=== PATIENT | male | born 1970 | race American Indian/Alaskan Native ===

== ENCOUNTER 2016-09-30 13:37 | Inpatient (IN) | payer MEDICAID ==
--- NOTE | 2016-09-30 14:48 | CT ---
PROCEDURE: CT HEAD WITHOUT CONTRAST. HISTORY: Syncope COMPARISON: None available. TECHNIQUE: Axial computed tomography images were obtained through the head/brain without intravenous contrast. Radiation dose: Total exam DLP = 711.77 MGy-cm. This CT exam was performed using one or more of the following dose reduction techniques: Automated exposure control, adjustment of the mA and/or kV according to patient size, and/or use of iterative reconstruction technique. FINDINGS: HEMORRHAGE: No intracranial hemorrhage. BRAIN: Block-white matter differentiation is preserved. There is no mass, mass effect or abnormal extra-axial fluid collection. There is no territorial infarction. VENTRICLES: The ventricles are normal in size, shape and configuration. CALVARIUM: There is no calvarial fracture or extracranial soft tissue swelling. PARANASAL SINUSES: Predominantly clear. MASTOID AIR CELLS: Predominantly clear. OTHER FINDINGS: None. IMPRESSION: No acute intracranial abnormality.
--- NOTE | 2016-09-30 14:56 | ED PDOC ---
Arrival/HPI - General Chief Complaint: Syncope Time Seen by Provider: 09/30/16 14:05 Historian: Patient - History of Present Illness Narrative History of Present Illness (Text): 09/30/16 14:55 46 year old male sent by PMD for evaluation of multiple syncopal episodes. Patient states he has "blacked out" multiple times. He also reports shortness of breath for the past month. Denies any other complaints at this time. pt saw dr danielson today, sent to er for admission for syncope PMD: Dr. Danielson 09/30/16 16:13 Time/Duration: < month Symptom Onset: Gradual Symptom Course: Intermittent Modifying Factors (Text): None Past Medical History - Provider Review Nursing Documentation Reviewed: Yes - Infectious Disease Hx of Infectious Diseases: None - Tetanus Immunization Tetanus Immunization: Unknown - Cardiac Hx Cardiac Disorders: No - Pulmonary Hx Respiratory Disorders: Yes Hx Asthma: Yes - Neurological Hx Neurological Disorder: Yes HX Cerebrovascular Accident: Yes - HEENT Hx HEENT Disorder: No - Renal Hx Renal Disorder: No - Endocrine/Metabolic Hx Endocrine Disorders: No - Hematological/Oncological Hx Blood Disorders: No - Integumentary Hx Dermatological Disorder: No - Musculoskeletal/Rheumatological Hx Musculoskeletal Disorders: No - Gastrointestinal Hx Gastrointestinal Disorders: No - Genitourinary/Gynecological Hx Genitourinary Disorders: No - Psychiatric Hx Psychophysiologic Disorder: No Hx Depression: No Hx Emotional Abuse: No Hx Physical Abuse: No Hx Substance Use: No (as per patient, he stopped years ago) - Anesthesia Hx Anesthesia: No - Suicidal Assessment Feels Threatened In Home Enviroment: No Family/Social History - Physician Review Nursing Documentation Reviewed: Yes Family/Social History: Unknown Family HX Smoking Status: Former Smoker Hx Alcohol Use: No Hx Substance Use: No (as per patient, he stopped years ago) Substance used: marijuana, cocaine, heroine Hx Substance Use Treatment: No Allergies/Home Meds Allergies/Adverse Reactions: Allergies No Known Allergies Allergy (Verified 09/30/16 14:02) Review of Systems - Physician Review All systems were reviewed & negative as marked: Yes - Review of Systems Respiratory: SOB. absent: Cough Cardiovascular: Syncope. absent: Chest Pain Gastrointestinal: absent: Abdominal Pain Physical Exam Vital Signs Reviewed: Yes Vital Signs Temp Pulse Resp BP Pulse Ox 09/30/16 19:38 57 L 14 121/72 100 09/30/16 17:46 68 18 125/71 98 09/30/16 15:27 65 18 127/79 98 09/30/16 14:03 98.2 F 62 16 129/86 98 Temperature: Afebrile Blood Pressure: Normal Pulse: Regular Respiratory Rate: Normal Appearance: Positive for: Well-Appearing, Non-Toxic, Comfortable Pain Distress: None Mental Status: Positive for: Alert and Oriented X 3 - Systems Exam Head: Present: Atraumatic, Normocephalic Pupils: Present: PERRL Extroacular Muscles: Present: EOMI Conjunctiva: Present: Normal Mouth: Present: Moist Mucous Membranes Neck: Present: Normal Range of Motion Respiratory/Chest: Present: Clear to Auscultation, Good Air Exchange. No: Respiratory Distress, Accessory Muscle Use Cardiovascular: Present: Regular Rate and Rhythm, Normal S1, S2. No: Murmurs Abdomen: Present: Normal Bowel Sounds. No: Tenderness, Distention, Peritoneal Signs Back: Present: Normal Inspection Upper Extremity: Present: Normal Inspection. No: Cyanosis, Edema Lower Extremity: Present: Normal Inspection. No: Edema, Tenderness, Swelling Neurological: Present: GCS=15, CN II-XII Intact, Speech Normal Skin: Present: Warm, Dry, Normal Color. No: Rashes Psychiatric: Present: Alert, Oriented x 3, Normal Insight, Normal Concentration Medical Decision Making ED Course and Treatment: Impression: 46 year old male sent by PMD for evaluation of multiple syncopal episodes Differential Diagnosis include but are not limited to: sycnope, r/o cardiac, metaboic, intracranial pathology Plan: -- CT Head, EKG, Chest X-ray -- Labs -- Reassess and disposition Progress Notes: 09/30/16 14:55 Patient is PERC negative PROCEDURE: CT HEAD WITHOUT CONTRAST. Peer Support Specialist : Marysol Quezada MD Report Date : 09/30/2016 14:46:49 IMPRESSION: No acute intracranial abnormality. 09/30/16 16:14 pt reassesed. aleksandra. discussed with dr salinas, accepts for admission - Lab Interpretations Lab Results: 09/30/16 15:10 09/30/16 15:10 Lab Results 09/30/16 15:40: Urine Color Yellow, Urine Appearance Clear, Urine pH 6.0, Ur Specific Glennie 1.025, Urine Protein Trace H, Urine Glucose (UA) Negative, Urine Ketones Negative, Urine Blood Negative, Urine Nitrate Negative, Urine Bilirubin Negative, Urine Urobilinogen 0.2, Ur Leukocyte Esterase Negative, Urine RBC 0 - 2, Urine WBC 0 - 2, Ur Epithelial Cells 0 - 2, Urine Bacteria Trace 09/30/16 15:10: Hemoglobin A1c 5.5 09/30/16 15:10: TSH 3rd Generation 1.51, Alcohol, Quantitative < 10 09/30/16 15:10: Sodium 137, Potassium 4.8, Chloride 99, Carbon Dioxide 32, Anion Gap 11, BUN 19, Creatinine 1.3, Est GFR ( Amer) > 60, Est GFR (Non- Af Amer) 60, Random Glucose 98, Calcium 9.6, Magnesium 2.1, Total Bilirubin 0.6 , AST 39, ALT 41, Alkaline Phosphatase 44, Lactate Dehydrogenase 475, Total Creatine Kinase 293 H, CK-MB (CK-2) 4.2 H, CK-MB (CK-2) % Cancelled, Troponin I < 0.01, NT-Pro-B Natriuret Pep 15.3, Total Protein 8.0, Albumin 4.7, Globulin 3.4, Albumin/Globulin Ratio 1.4 09/30/16 15:10: PT 12.1 H, INR 1.12 H, APTT 29.6 09/30/16 15:10: WBC 4.1 L, RBC 4.61, Hgb 13.6 L, Hct 39.9 L, MCV 86.6, MCH 29.5 , MCHC 34.1, RDW 13.4, Plt Count 89 L, MPV 11.6 H, Gran % 51.6, Lymph % (Auto) 36.8 H, [place] % (Auto) 8.4 H, Eos % (Auto) 2.5, Baso % (Auto) 0.7, Gran # 2.09, Lymph # 1.5, [place] # 0.3, Eos # 0.1, Baso # 0.03 - RAD Interpretation Radiology Orders: 09/30/16 14:15 HEAD W/O CONTRAST [CT] Stat CHEST PORTABLE [RAD] Stat - Medication Orders Current Medication Orders: Discontinued Medications Al Hydrox/Mg Hydrox/Simethicone (Maalox Plus 30 Ml) 30 ml PO STAT STA Stop: 10/02/16 12:51 Last Admin: 10/02/16 13:11 Dose: 30 ml Aspirin (Aspirin Chewable) 81 mg PO DAILY [facility] Last Admin: 10/02/16 10:58 Dose: 81 mg Aspirin (Ecotrin) Confirm Administered Dose 81 mg PO .STK-MED ONE Stop: 10/02/16 10:58 Last Admin: 10/02/16 11:00 Dose: 81 mg Atorvastatin Calcium (Lipitor) 10 mg PO DIN [facility] Last Admin: 10/01/16 18:00 Dose: 10 mg Ibuprofen (Motrin Tab) 400 mg PO Q6H PRN PRN Reason: Pain, severe (8-10) Last Admin: 10/02/16 12:02 Dose: 400 mg Ibuprofen (Motrin Tab) Confirm Administered Dose 400 mg PO .STK-MED ONE Stop: 10/02/16 11:57 Last Admin: 10/02/16 12:04 Dose: Multivitamins (Thera Tab) 1 tab PO STAT STA Stop: 09/30/16 17:46 Last Admin: 09/30/16 20:16 Dose: Not Given Non-Admin Reason: Patient Refused Multivitamins/Minerals (Therapeutic-M Tab) 1 tab PO 0800 [facility] Last Admin: 10/02/16 10:58 Dose: 1 tab Multivitamins/Minerals (Therapeutic-M Tab) Confirm Administered Dose 1 tab PO .STK-MED ONE Stop: 10/02/16 10:58 Last Admin: 10/02/16 11:00 Dose: 1 tab Pantoprazole Sodium (Protonix Ec Tab) 40 mg PO 0600 [facility] Last Admin: 10/02/16 05:44 Dose: 40 mg Pneumococcal Polyvalent Vaccine (Pneumovax 23 Vaccine) 0.5 ml IM .ONCE ONE Stop: 09/30/16 21:38 Prednisone (Prednisone Tab) 40 mg PO STAT STA Stop: 10/01/16 10:10 Last Admin: 10/01/16 10:29 Dose: 40 mg Prednisone (Prednisone Tab) 30 mg PO STAT STA Stop: 10/02/16 13:30 Last Admin: 10/02/16 13:38 Dose: 30 mg Thiamine HCl (Vitamin B1 Tab) 100 mg PO DAILY [facility] Last Admin: 10/02/16 10:58 Dose: Thiamine HCl (Vitamin B1 Tab) 100 mg PO DAILY [facility] Last Admin: 10/02/16 10:58 Dose: 100 mg Thiamine HCl (Vitamin B1 Tab) Confirm Administered Dose 100 mg .ROUTE .STK-MED ONE Stop: 10/02/16 10:59 Last Admin: 10/02/16 11:00 Dose: 100 mg - Scribe Statement The provider has reviewed the documentation as recorded by the Orin Limon Provider Scribe Attestation: All medical record entries made by the Orin were at my direction and personally dictated by me. I have reviewed the chart and agree that the record accurately reflects my personal performance of the history, physical exam, medical decision making, and the department course for this patient. I have also personally directed, reviewed, and agree with the discharge instructions and disposition. Disposition/Present on Arrival - Present on Arrival Any Indicators Present on Arrival: No History of DVT/PE: No History of Uncontrolled Diabetes: No Urinary Catheter: No History of Decub. Ulcer: No History Surgical Site Infection Following: None - Disposition Have Diagnosis and Disposition been Completed?: Yes Diagnosis: Syncope Disposition: HOSPITALIZED Disposition Time: 04:00 Condition: FAIR
--- NOTE | 2016-09-30 15:18 | RAD ---
HISTORY: Syncope COMPARISON: No prior. FINDINGS: LUNGS: The lungs are well inflated and clear. PLEURA: No significant pleural effusion identified, no pneumothorax apparent. CARDIOVASCULAR: Normal. OSSEOUS STRUCTURES: No significant abnormalities. VISUALIZED UPPER ABDOMEN: Normal. OTHER FINDINGS: None. IMPRESSION: No active pulmonary disease.
[2016-09-30 15:22] LABS: ADD MANUAL DIFF? NO
[2016-09-30 15:36] LABS: INR 1.12 (0.93-1.08); PARTIAL THROMBOPLASTIN TIME 29.6 Seconds (23.7-30.8)
[2016-09-30 15:38] LABS: BASO # 0.03 K/mm3 (0.0-2.0); BASO % 0.7 % (0.0-3.0); EOS # 0.1 (0.0-0.7); EOS % 2.5 % (1.5-5.0); GRAN # 2.09 (1.4-6.5); GRAN % 51.6 % (50.0-68.0); HEMATOCRIT 39.9 % (42.0-52.0); LYMPH # 1.5 (1.2-3.4); LYMPH % 36.8 % (22.0-35.0); MEAN CELL VOLUME 86.6 fL (80.0-105.0); MEAN CORPUSCULAR HEMOGLOBIN 29.5 pg (25.0-35.0); MEAN CORPUSCULAR HGB CONC 34.1 g/dl (31.0-37.0); MEAN PLATELET VOLUME 11.6 fl (7.0-11.0); MONO # 0.3 (0.1-0.6); MONO % 8.4 % (1.0-6.0); PLATELET COUNT 89 10^3/uL (120.0-450.0); RED CELL DISTRIBUTION WIDTH 13.4 % (11.5-14.5); WHITE BLOOD COUNT 4.1 10^3/ul (4.5-11.0)
[2016-09-30 15:39] LABS: ALB/GLOB RATIO 1.4 (1.1-1.8); ALKALINE PHOSPHATASE 44 U/L (38-133); ALT/SGPT 41 U/L (7-56); AST/SGOT 39 U/L (15-59); BILIRUBIN,TOTAL 0.6 mg/dL (0.2-1.3); BLOOD UREA NITROGEN 19 mg/dL (7-21); CALCIUM 9.6 mg/dL (8.4-10.5); CARBON DIOXIDE 32 mmol/L (21-33); CHLORIDE 99 mmol/L (98-107); GFR AFRICAN-AMERICAN > 60; GLUCOSE,RANDOM 98 mg/dL (70-110); MAGNESIUM 2.1 mg/dL (1.7-2.2); POTASSIUM 4.8 mmol/L (3.6-5.0); SODIUM 137 mmol/L (132-148)
[2016-09-30 15:54] LABS: URINE BILIRUBIN NEGATIVE (NEGATIVE); URINE BLOOD NEGATIVE (NEGATIVE); URINE GLUCOSE (UA) NEGATIVE (NEGATIVE); URINE KETONE NEGATIVE (NEGATIVE); URINE LEUKOCYTE ESTERASE NEGATIVE Leu/uL (NEGATIVE); URINE PROTEIN TRACE mg/dL (<30 mg/dL); URINE UROBILINOGEN 0.2 E.U./dL (<1 E.U./dL)
[2016-09-30 15:56] LABS: URINE APPEARANCE CLEAR (CLEAR); URINE COLOR YELLOW (YELLOW)
[2016-09-30 15:58] LABS: TROPONIN I < 0.01 ng/mL
[2016-09-30 16:18] LABS: URINE BACTERIA TRACE (NEG); URINE EPITHELIAL CELLS 0 - 2 /hpf (0-5); URINE RBC 0 - 2 /hpf (0-2); URINE WBC 0 - 2 /hpf (0-6)
[2016-09-30] MEDS ORDERED: Multivitamin Therapeutic Tab PO STA (17:45)
[2016-09-30 17:51] LABS: URIC ACID 6.7 mg/dL (3.5-8.5)
[2016-09-30 17:55] LABS: ALCOHOL SERUM < 10 mg/dL (0-10)
[2016-09-30 18:25] LABS: THYROID STIMULATING HORMONE 1.51 mIU/mL (0.46-4.68)
[2016-09-30 18:51] LABS: PHOSPHOROUS 4.3 mg/dL (2.5-4.5)
--- NOTE | 2016-09-30 18:54 | CP.PCM.HP ---
<Aly Jean - Last Filed: 09/30/16 18:47> History of Present Illness - History of Present Illness History of Present Illness: CC: Passed out while watching TV and L foot hurts 46M with pmh of HTN, CVA in 2006 and 2011 with lower extremity weakness presents following PMD office visit with Dr Danielson. Pt c/o of multiple episodes of passing out while watching TV. He denies falling down or hitting his head. He denies biting his tongue or urinary incontinence during these episodes. No history of seizures. He also c/o Right lower ext twitching. Pt c/o Left first toe pain that has been present for 2 years. Pt states that he has been told before that it was just a sprain but he has never followed up with it. No the pain has gotten progressively worse. He denies any swelling or inflammation of the toes. He james any montgomery, dizziness, f/c, sob, cp, abd pain, urinary or bm changes. PMH: as above PSH: denies Med: none ALL: NKA SH: admits to 20 years of drinking 1 pack of beer a day, recently he cut back to 2 beers daily; former smoker of 20 pack years; Prior user of snorting heroin. FH: mom had stroke at 56 yo Present on Admission - Present on Admission Any Indicators Present on Admission: No Review of Systems - Review of Systems All systems: reviewed and no additional remarkable complaints except (H and P) Past Patient History - Infectious Disease Hx of Infectious Diseases: None - Tetanus Immunizations Tetanus Immunization: Unknown - Past Social History Smoking Status: Former Smoker Alcohol: > 2 Drinks/Day Drugs: Opiates - CARDIAC Hx Cardiac Disorders: No - PULMONARY Hx Respiratory Disorders: Yes Hx Asthma: Yes - NEUROLOGICAL Hx Neurological Disorder: Yes HX Cerebrovascular Accident: Yes - HEENT Hx HEENT Problems: No - RENAL Hx Chronic Kidney Disease: No - ENDOCRINE/METABOLIC Hx Endocrine Disorders: No - HEMATOLOGICAL/ONCOLOGICAL Hx Blood Disorders: No - INTEGUMENTARY Hx Dermatological Problems: No - MUSCULOSKELETAL/RHEUMATOLOGICAL Hx Musculoskeletal Disorders: No - GASTROINTESTINAL Hx Gastrointestinal Disorders: No - GENITOURINARY/GYNECOLOGICAL Hx Genitourinary Disorders: No - PSYCHIATRIC Hx Psychophysiologic Disorder: No Hx Depression: No Hx Emotional Abuse: No Hx Physical Abuse: No Hx Substance Use: No (as per patient, he stopped years ago) - SURGICAL HISTORY Hx Surgeries: No - ANESTHESIA Hx Anesthesia: No Meds Allergies/Adverse Reactions: Allergies Allergy/AdvReac Type Severity Reaction Status Date / Time No Known Allergies Allergy Verified 09/30/16 14:02 Physical Exam - Constitutional Appears: No Acute Distress - Head Exam Head Exam: ATRAUMATIC, NORMAL INSPECTION, NORMOCEPHALIC - Eye Exam Eye Exam: EOMI, Normal appearance, PERRL Pupil Exam: NORMAL ACCOMODATION, PERRL - ENT Exam ENT Exam: Mucous Membranes Moist, Normal Exam - Neck Exam Neck exam: Positive for: Normal Inspection - Respiratory Exam Respiratory Exam: Clear to Auscultation Bilateral, NORMAL BREATHING PATTERN. absent: Wheezes - Cardiovascular Exam Cardiovascular Exam: REGULAR RHYTHM, RRR, +S1, +S2 - GI/Abdominal Exam GI & Abdominal Exam: Normal Bowel Sounds, Soft. absent: Tenderness - Extremities Exam Extremities exam: Positive for: normal inspection, tenderness. Negative for: pedal edema Additional comments: L 1st to; FROM but tender to palpation; no edema or erythema - Neurological Exam Neurological exam: Alert, CN II-XII Intact, Normal Gait, Oriented x3, Reflexes Normal - Psychiatric Exam Psychiatric exam: Normal Affect, Normal Mood - Skin Skin Exam: Dry, Intact, Normal Color, Warm Results - Vital Signs Recent Vital Signs: Last Vital Signs Temp 98.2 F 09/30/16 14:03 Pulse 68 09/30/16 17:46 Resp 18 09/30/16 17:46 BP 125/71 09/30/16 17:46 Pulse Ox 98 09/30/16 17:46 - Labs Result Diagrams: 09/30/16 15:10 09/30/16 15:10 Labs: Laboratory Results - last 24 hr 09/30/16 17:37 Uric Acid 6.7 Triglycerides 55 Cholesterol 206 H LDL Cholesterol Direct 102 HDL Cholesterol 82 H Assessment & Plan - Assessment and Plan (Free Text) Assessment: 46M with pmh of CVA in 2006 and 2011 with lower extremity weakness presents following PMD office visit for syncope and L foot pain. 1. Syncope - Started Aspirin and Lipitor - EKbpm NSR - F/u neurology consult - Head CT was negative for any acute intracranial abnormalities - F/u Echo - F/u Carotid US - CXR: no active pulm disease - F/u HIV, Hep panel - CBC, CMP, Mg, P, TSH, Lipid profile, Hba1c - fall precautions - u tox 2. L foot pain - F/u L foot Xray - pain control 3. ETOH abuse - Thiamine and multivit - CIWA 4. GI/DVT ppx - Protonix and SCDs - PT - HHD Case and plan was seen, reviewed, and discussed in detail with Dr Orta <Addy Orta - Last Filed: 10/01/16 16:54> Results - Vital Signs Recent Vital Signs: Last Vital Signs Temp 97.1 F L 10/01/16 12:00 Pulse 64 10/01/16 14:00 Resp 22 10/01/16 12:00 BP 110/77 10/01/16 12:00 Pulse Ox 98 10/01/16 05:21 - Labs Result Diagrams: 10/01/16 05:35 10/01/16 05:35 Labs: Laboratory Results - last 24 hr 09/30/16 09/30/16 09/30/16 17:37 18:36 18:36 WBC RBC Hgb Hct MCV MCH MCHC RDW Plt Count MPV Gran % Lymph % (Auto) [place] % (Auto) Eos % (Auto) Baso % (Auto) Gran # Lymph # [place] # Eos # Baso # Sodium Potassium Chloride Carbon Dioxide Anion Gap BUN Creatinine Est GFR ( Amer) Est GFR (Non-Af Amer) Random Glucose Uric Acid 6.7 Calcium Phosphorus 4.3 Magnesium 2.0 Total Bilirubin AST ALT Alkaline Phosphatase Total Protein Albumin Globulin Albumin/Globulin Ratio Triglycerides 55 Cholesterol 206 H LDL Cholesterol Direct 102 HDL Cholesterol 82 H Vitamin B12 Urine Opiates Screen Urine Methadone Screen Ur Barbiturates Screen Ur Phencyclidine Scrn Ur Amphetamines Screen U Benzodiazepines Scrn U Oth Cocaine Metabols U Cannabinoids Screen Hepatitis A IgM Ab Negative Hep Bs Antigen Negative Hep B Core IgM Ab Negative Hepatitis C Antibody Negative HIV 1&2 Ag/Ab, 4th Gen Nonreactive 10/01/16 10/01/16 10/01/16 05:35 05:35 10:00 WBC 3.2 L D RBC 4.26 Hgb 12.4 L Hct 37.3 L MCV 87.6 MCH 29.1 MCHC 33.2 RDW 13.6 Plt Count 89 L MPV 11.7 H Gran % 39.7 L Lymph % (Auto) 43.8 H [place] % (Auto) 10.9 H Eos % (Auto) 5.0 Baso % (Auto) 0.6 Gran # 1.27 L Lymph # 1.4 [place] # 0.4 Eos # 0.2 Baso # 0.02 Sodium 136 Potassium 4.4 Chloride 102 Carbon Dioxide 28 Anion Gap 10 BUN 18 Creatinine 1.0 Est GFR ( Amer) > 60 Est GFR (Non-Af Amer) > 60 Random Glucose 94 Uric Acid Calcium 8.9 Phosphorus Magnesium Total Bilirubin 0.7 AST 33 ALT 42 Alkaline Phosphatase 34 L Total Protein 6.9 Albumin 3.9 Globulin 3.0 Albumin/Globulin Ratio 1.3 Triglycerides Cholesterol LDL Cholesterol Direct HDL Cholesterol Vitamin B12 370 Urine Opiates Screen Positive H Urine Methadone Screen Negative Ur Barbiturates Screen Negative Ur Phencyclidine Scrn Negative Ur Amphetamines Screen Negative U Benzodiazepines Scrn Negative U Oth Cocaine Metabols Negative U Cannabinoids Screen Negative Hepatitis A IgM Ab Hep Bs Antigen Hep B Core IgM Ab Hepatitis C Antibody HIV 1&2 Ag/Ab, 4th Gen Attending/Attestation - Attestation I have personally seen and examined this patient.: Yes I have fully participated in the care of the patient.: Yes I have reviewed all pertinent clinical information: Yes Notes (Text): 10/01/16 16:50 attending note; Patient seen and examined with resident in ER. Patient is alert, awake and oriented. Patient is a 46-year-old male with a past medical CVA, leg injury, weakness, Proctor's palsy, alcohol abuse, multiple incarceraion is admitted with syncope. Patient gives a vague history of passing out while watching TV. Patient also drinks alcohol regularly. Patient is also complaining of left foot swelling and gait disability. CT head is negative. echocardiogram, carotid Doppler ordered. Neuro evaluation requested. Left foot swelling. Uric acid ordered. PT evaluation requested. pancytopenia; secondary to alcohol abuse. Hepatitis, HIV ordered. Upon discharge the patient will PMD .
[2016-09-30 21:37] VITALS: BMI 28.4
[2016-09-30] MEDS ORDERED: Pneumococcal 23-Valent Vaccine IM ONE (21:37)
[2016-10-01] MEDS: Pantoprazole 40 mg EC Tab PO SCH (05:56)
[2016-10-01 06:31] LABS: ADD MANUAL DIFF? NO
[2016-10-01 06:32] LABS: BASO # 0.02 K/mm3 (0.0-2.0); BASO % 0.6 % (0.0-3.0); EOS # 0.2 (0.0-0.7); GRAN # 1.27 (1.4-6.5); GRAN % 39.7 % (50.0-68.0); HEMATOCRIT 37.3 % (42.0-52.0); LYMPH # 1.4 (1.2-3.4); LYMPH % 43.8 % (22.0-35.0); MEAN CELL VOLUME 87.6 fL (80.0-105.0); MEAN CORPUSCULAR HEMOGLOBIN 29.1 pg (25.0-35.0); MEAN CORPUSCULAR HGB CONC 33.2 g/dl (31.0-37.0); MEAN PLATELET VOLUME 11.7 fl (7.0-11.0); MONO # 0.4 (0.1-0.6); MONO % 10.9 % (1.0-6.0); PLATELET COUNT 89 10^3/uL (120.0-450.0); RED CELL DISTRIBUTION WIDTH 13.6 % (11.5-14.5); WHITE BLOOD COUNT 3.2 10^3/ul (4.5-11.0)
[2016-10-01 07:03] LABS: ALB/GLOB RATIO 1.3 (1.1-1.8); ALKALINE PHOSPHATASE 34 U/L (38-133); ALT/SGPT 42 U/L (7-56); AST/SGOT 33 U/L (15-59); BILIRUBIN,TOTAL 0.7 mg/dL (0.2-1.3); BLOOD UREA NITROGEN 18 mg/dL (7-21); CALCIUM 8.9 mg/dL (8.4-10.5); CARBON DIOXIDE 28 mmol/L (21-33); CHLORIDE 102 mmol/L (98-107); GFR AFRICAN-AMERICAN > 60; GLUCOSE,RANDOM 94 mg/dL (70-110); POTASSIUM 4.4 mmol/L (3.6-5.0); SODIUM 136 mmol/L (132-148); TOTAL PROTEIN 6.9 g/dL (5.8-8.3)
--- NOTE | 2016-10-01 08:28 | US ---
PROCEDURE: Bilateral carotid artery duplex ultrasound HISTORY: Carotid stenosis PHYSICIAN(S): Noel Zabala MD. TECHNIQUE: Duplex sonography and color-flow Doppler were used to evaluate the carotid bifurcations and limited segments of the vertebral arteries bilaterally. FINDINGS: There is mild smooth hypoechoic plaque noted at the carotid bifurcations bilaterally. The peak systolic velocity in the proximal right internal carotid artery is 83 cm/sec. This corresponds to a 20 to 39% proximal right ICA stenosis. Normal systolic velocities are noted in the proximal right external carotid artery. There is antegrade flow in the right vertebral artery. The peak systolic velocity in the proximal left internal carotid artery is 90 cm/sec. This corresponds to a 20 to 39% proximal left ICA stenosis. Normal systolic velocities are noted in the proximal left external carotid artery. There is antegrade flow in the left vertebral artery. IMPRESSION: 1. Bilateral 20-39% proximal ICA stenoses. 2. Antegrade flow in both vertebral arteries.
[2016-10-01] MEDS: Multivitamin With Minerals Tab PO SCH (08:33)
--- NOTE | 2016-10-01 11:06 | RAD ---
PROCEDURE: Left Foot Radiographs. HISTORY: L foot pain COMPARISON: None. FINDINGS: BONES: No acute displaced fracture or dislocation. Bone mineralization is normal. JOINTS: There is severe degenerative osteoarthrosis in the 1st MTP joint with reduced joint space, marginal osteophytes and periarticular soft tissue swelling. There is also mild hallux valgus. The remaining joint spaces are preserved. SOFT TISSUES: Normal. OTHER FINDINGS: None. 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
--- NOTE | 2016-10-01 12:30 | CP.PCM.CON ---
History of Present Illness - History of Present Illness History of Present Illness: 46M with PMH of HTN, CVA in 2006 and 2011 was seen at [facility] for left foot pain with attending Dr. Delvalle. Patient states that he has had the pain for the past 3 years. He describes the pain as being located at the medial aspect of his left foot.. He states the pain occurs when he is walking. He states that sometimes the pain bothers him so much that he is unable to walk. He denies n/v/ sob/cp/f or chills. There is no other pedal complaint at this time . PMH: as above PSH: denies Med: none ALL: NKA SH: admits to 20 years of drinking 1 pack of beer a day, recently he cut back to 2 beers daily; former smoker of 20 pack years; Prior user of snorting heroin. FH: mom had stroke at 56 yo Review of Systems - Constitutional Constitutional: As Per HPI Past Patient History - Infectious Disease Hx of Infectious Diseases: None - Tetanus Immunizations Tetanus Immunization: Unknown - Past Social History Smoking Status: Former Smoker - CARDIAC Hx Cardiac Disorders: Yes Hx Hypertension: Yes - PULMONARY Hx Respiratory Disorders: Yes Hx Asthma: Yes - NEUROLOGICAL Hx Neurological Disorder: Yes HX Cerebrovascular Accident: Yes (As per patient In 2004 and 2014.) Hx Dizziness: Yes - HEENT Hx HEENT Problems: Yes (wears glasses) - RENAL Hx Chronic Kidney Disease: No - ENDOCRINE/METABOLIC Hx Endocrine Disorders: No - HEMATOLOGICAL/ONCOLOGICAL Hx Blood Disorders: No - INTEGUMENTARY Hx Dermatological Problems: No - MUSCULOSKELETAL/RHEUMATOLOGICAL Hx Musculoskeletal Disorders: Yes Hx Falls: No Hx Unsteady Gait: Yes - GASTROINTESTINAL Hx Gastrointestinal Disorders: No - GENITOURINARY/GYNECOLOGICAL Hx Genitourinary Disorders: No - PSYCHIATRIC Hx Psychophysiologic Disorder: Yes Hx Anxiety: No Hx Depression: Yes Hx Emotional Abuse: No Hx Physical Abuse: No Hx Sexual Abuse: No Hx Substance Use: Yes (Heroin: stopped in 2014 as per Patient) - SURGICAL HISTORY Hx Surgeries: No Other/Comment: Right knuckle had stitches in the past due to broken glass - ANESTHESIA Hx Anesthesia: No Meds Allergies/Adverse Reactions: Allergies Allergy/AdvReac Type Severity Reaction Status Date / Time No Known Allergies Allergy Verified 09/30/16 14:02 - Medications Medications: Current Medications Aspirin (Aspirin Chewable) 81 mg PO DAILY [facility] Last Admin: 10/01/16 09:56 Dose: 81 mg Atorvastatin Calcium (Lipitor) 10 mg PO DIN [facility] Last Admin: 09/30/16 18:35 Dose: 10 mg Ibuprofen (Motrin Tab) 400 mg PO Q6H PRN PRN Reason: Pain, severe (8-10) Last Admin: 10/01/16 10:29 Dose: 400 mg Multivitamins/Minerals (Therapeutic-M Tab) 1 tab PO 0800 [facility] Last Admin: 10/01/16 08:33 Dose: 1 tab Pantoprazole Sodium (Protonix Ec Tab) 40 mg PO 0600 [facility] Last Admin: 10/01/16 05:56 Dose: 40 mg Thiamine HCl (Vitamin B1 Tab) 100 mg PO DAILY [facility] Last Admin: 10/01/16 09:56 Dose: 100 mg Thiamine HCl (Vitamin B1 Tab) 100 mg PO DAILY [facility] Last Admin: 10/01/16 09:55 Dose: Not Given Physical Exam - Constitutional Appears: Well, Non-toxic, No Acute Distress - Extremities Exam Additional comments: Vasc: DP and PT 2/4 bilaterally, HISTOLOGY AIDE <3 seconds, temperature gradient WNL, no peripheral edema noted Ortho: moderate pain elicited upon palpation of the 1st MPJ medially Neuro: gross sensation intact Derm: hyperpigmented skin noted to the entire foot; no open lesions noted, no clinical signs of infection: no erythema, no purulence, or no odor. - Neurological Exam Neurological exam: Alert, Oriented x3 - Psychiatric Exam Psychiatric exam: Normal Affect, Normal Mood Results - Vital Signs Recent Vital Signs: Last Vital Signs Temp 97.1 F L 10/01/16 12:00 Pulse 64 10/01/16 12:00 Resp 22 10/01/16 12:00 BP 110/77 10/01/16 12:00 Pulse Ox 98 10/01/16 05:21 - Labs Result Diagrams: 10/01/16 05:35 10/01/16 05:35 Labs: Laboratory Results - last 24 hr 09/30/16 09/30/16 10/01/16 17:37 18:36 05:35 WBC 3.2 L D RBC 4.26 Hgb 12.4 L Hct 37.3 L MCV 87.6 MCH 29.1 MCHC 33.2 RDW 13.6 Plt Count 89 L MPV 11.7 H Gran % 39.7 L Lymph % (Auto) 43.8 H [place] % (Auto) 10.9 H Eos % (Auto) 5.0 Baso % (Auto) 0.6 Gran # 1.27 L Lymph # 1.4 [place] # 0.4 Eos # 0.2 Baso # 0.02 Sodium Potassium Chloride Carbon Dioxide Anion Gap BUN Creatinine Est GFR ( Amer) Est GFR (Non-Af Amer) Random Glucose Uric Acid 6.7 Calcium Phosphorus 4.3 Magnesium 2.0 Total Bilirubin AST ALT Alkaline Phosphatase Total Protein Albumin Globulin Albumin/Globulin Ratio Triglycerides 55 Cholesterol 206 H LDL Cholesterol Direct 102 HDL Cholesterol 82 H Urine Opiates Screen Urine Methadone Screen Ur Barbiturates Screen Ur Phencyclidine Scrn Ur Amphetamines Screen U Benzodiazepines Scrn U Oth Cocaine Metabols U Cannabinoids Screen Hepatitis A IgM Ab Negative Hep Bs Antigen Negative Hep B Core IgM Ab Negative Hepatitis C Antibody Negative 10/01/16 10/01/16 05:35 10:00 WBC RBC Hgb Hct MCV MCH MCHC RDW Plt Count MPV Gran % Lymph % (Auto) [place] % (Auto) Eos % (Auto) Baso % (Auto) Gran # Lymph # [place] # Eos # Baso # Sodium 136 Potassium 4.4 Chloride 102 Carbon Dioxide 28 Anion Gap 10 BUN 18 Creatinine 1.0 Est GFR ( Amer) > 60 Est GFR (Non-Af Amer) > 60 Random Glucose 94 Uric Acid Calcium 8.9 Phosphorus Magnesium Total Bilirubin 0.7 AST 33 ALT 42 Alkaline Phosphatase 34 L Total Protein 6.9 Albumin 3.9 Globulin 3.0 Albumin/Globulin Ratio 1.3 Triglycerides Cholesterol LDL Cholesterol Direct HDL Cholesterol Urine Opiates Screen Positive H Urine Methadone Screen Negative Ur Barbiturates Screen Negative Ur Phencyclidine Scrn Negative Ur Amphetamines Screen Negative U Benzodiazepines Scrn Negative U Oth Cocaine Metabols Negative U Cannabinoids Screen Negative Hepatitis A IgM Ab Hep Bs Antigen Hep B Core IgM Ab Hepatitis C Antibody Assessment & Plan - Assessment and Plan (Free Text) Assessment: 46 y.o male presents with left foot pain Plan: - Patient was evaluated and seen at bedside with Dr. Delvalle - Followup X-rays of left foot - Ordered surgical shoe for left foot - Podiatry will continue to follow
--- NOTE | 2016-10-01 14:00 | CP.PCM.PN ---
<Mary Ellen Carpio - Last Filed: 10/01/16 14:08> Subjective - Date & Time of Evaluation Date of Evaluation: 10/01/16 Time of Evaluation: 10:00 - Subjective Subjective: Pt was seen and examined at bedside. Pt has complaints of left 1st metatarsal pain. No acute or adverse events overnight as per nursing staff. Pt has not experienced any further episodes of syncope. Pt noted that he doesn't get much sleep and would find himself "passed out" wake up and not know that he had gone to sleep. Pt denied fever, chills, sob, dizziness, headache, chest pains, abdominal pains, n/v/d/c or urinary symptoms. Objective - Vital Signs/Intake and Output Vital Signs (last 24 hours): Temp Pulse Resp BP Pulse Ox 97.1 F L 64 22 110/77 98 10/01/16 12:00 10/01/16 12:00 10/01/16 12:00 10/01/16 12:00 10/01/16 05:21 Intake and Output: 10/01/16 10/01/16 06:59 18:59 Intake Total 300 300 Balance 300 300 - Medications Medications: Current Medications Aspirin (Aspirin Chewable) 81 mg PO DAILY [facility] Last Admin: 10/01/16 09:56 Dose: 81 mg Atorvastatin Calcium (Lipitor) 10 mg PO DIN [facility] Last Admin: 09/30/16 18:35 Dose: 10 mg Ibuprofen (Motrin Tab) 400 mg PO Q6H PRN PRN Reason: Pain, severe (8-10) Last Admin: 10/01/16 10:29 Dose: 400 mg Multivitamins/Minerals (Therapeutic-M Tab) 1 tab PO 0800 [facility] Last Admin: 10/01/16 08:33 Dose: 1 tab Pantoprazole Sodium (Protonix Ec Tab) 40 mg PO 0600 [facility] Last Admin: 10/01/16 05:56 Dose: 40 mg Thiamine HCl (Vitamin B1 Tab) 100 mg PO DAILY [facility] Last Admin: 10/01/16 09:56 Dose: 100 mg Thiamine HCl (Vitamin B1 Tab) 100 mg PO DAILY [facility] Last Admin: 10/01/16 09:55 Dose: Not Given - Labs Labs: 10/01/16 05:35 10/01/16 05:35 PT 12.1 Seconds (9.9-11.8) H 09/30/16 15:10 INR 1.12 (0.93-1.08) H 09/30/16 15:10 APTT 29.6 Seconds (23.7-30.8) 09/30/16 15:10 - Constitutional Appears: No Acute Distress - Head Exam Head Exam: ATRAUMATIC, NORMAL INSPECTION, NORMOCEPHALIC - Eye Exam Eye Exam: EOMI, Normal appearance, PERRL Pupil Exam: NORMAL ACCOMODATION, PERRL - ENT Exam ENT Exam: Mucous Membranes Moist, Normal Exam - Neck Exam Neck Exam: Full ROM, Normal Inspection. absent: Lymphadenopathy - Respiratory Exam Respiratory Exam: Clear to Ausculation Bilateral, NORMAL BREATHING PATTERN - Cardiovascular Exam Cardiovascular Exam: REGULAR RHYTHM, +S1, +S2. absent: Murmur - GI/Abdominal Exam GI & Abdominal Exam: Soft, Normal Bowel Sounds. absent: Tenderness - Extremities Exam Extremities Exam: Joint Swelling, Tenderness Additional comments: left foot swelling and 1st metatarsal tenderness - Neurological Exam Neurological Exam: Alert, Awake, CN II-XII Intact, Oriented x3 - Psychiatric Exam Psychiatric exam: Normal Affect, Normal Mood - Skin Skin Exam: Dry, Intact, Normal Color, Warm Assessment and Plan - Assessment and Plan (Free Text) Assessment: 46M with pmh of CVA in 2006 and 2011 with lower extremity weakness presents following PMD office visit for syncope and L foot pain. 1. Syncope - Started Aspirin and Lipitor - EKbpm NSR - Neurology consulted, Dr. Clarke following appreciate reccs - Head CT was negative for any acute intracranial abnormalities - F/u Echo final read. - Carotid US deomnstrated b/l 20-39% stenosis - CXR: no active pulm disease - F/u HIV - Hep panel negative - fall precautions - u tox positive for opiates 2. L foot pain - F/u L foot Xray demonstrated sever degenerative joint dz at 1st metatarsal - Dr. Delvalle consulted, appreciate recs - nsaids and steroids - PT eval - f/u MRI of left foot 3. ETOH abuse - Thiamine and multivit - CIWA 4. GI/DVT ppx - Protonix and SCDs - PT - HHD Case and plan was seen, reviewed, and discussed in detail with Dr Orta <Addy Orta - Last Filed: 10/01/16 16:58> Objective - Vital Signs/Intake and Output Vital Signs (last 24 hours): Temp Pulse Resp BP Pulse Ox 97.1 F L 64 22 110/77 98 10/01/16 12:00 10/01/16 14:00 10/01/16 12:00 10/01/16 12:00 10/01/16 05:21 Intake and Output: 10/01/16 10/01/16 06:59 18:59 Intake Total 300 300 Balance 300 300 - Medications Medications: Current Medications Aspirin (Aspirin Chewable) 81 mg PO DAILY [facility] Last Admin: 10/01/16 09:56 Dose: 81 mg Atorvastatin Calcium (Lipitor) 10 mg PO DIN [facility] Last Admin: 09/30/16 18:35 Dose: 10 mg Ibuprofen (Motrin Tab) 400 mg PO Q6H PRN PRN Reason: Pain, severe (8-10) Last Admin: 10/01/16 10:29 Dose: 400 mg Multivitamins/Minerals (Therapeutic-M Tab) 1 tab PO 0800 [facility] Last Admin: 10/01/16 08:33 Dose: 1 tab Pantoprazole Sodium (Protonix Ec Tab) 40 mg PO 0600 [facility] Last Admin: 10/01/16 05:56 Dose: 40 mg Thiamine HCl (Vitamin B1 Tab) 100 mg PO DAILY [facility] Last Admin: 10/01/16 09:56 Dose: 100 mg Thiamine HCl (Vitamin B1 Tab) 100 mg PO DAILY [facility] Last Admin: 10/01/16 09:55 Dose: Not Given - Labs Labs: 10/01/16 05:35 10/01/16 05:35 PT 12.1 Seconds (9.9-11.8) H 09/30/16 15:10 INR 1.12 (0.93-1.08) H 09/30/16 15:10 APTT 29.6 Seconds (23.7-30.8) 09/30/16 15:10 Attending/Attestation - Attestation I have personally seen and examined this patient.: Yes I have fully participated in the care of the patient.: Yes I have reviewed all pertinent clinical information, including history, physical exam and plan: Yes Notes (Text): 10/01/16 16:55 attending note; Patient seen and examined with resident in ER. Patient is alert, awake and oriented. Patient is a 46-year-old male with a past medical CVA, leg injury, weakness, Proctor's palsy, alcohol abuse, multiple incarceration is admitted with syncope. Patient gives a vague history of passing out while watching TV. Patient also drinks alcohol regularly. Possibly related to alcohol abuse. Patient is also complaining of left foot swelling and gait disability. CT head is negative. echocardiogram completed. carotid Doppler without significant stenosis. Neuro evaluation requested. Left foot swelling. Uric acid is normal. started on Motrin and by mouth prednisone. podiatry evaluation appreciated. 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 MRI ordered to rule out stress fracture. PT evaluation appreciated. pancytopenia; secondary to alcohol abuse. Hepatitis, HIV ordered. Upon discharge the patient will PMD . 10/01/16 16:56 10/01/16 16:57
--- NOTE | 2016-10-01 19:32 | CON ---
DATE: 10/01/2016 HISTORY OF PRESENT ILLNESS: This is a 46-year-old male with a past medical history of hypertension a nd CVA in 2006 and 2011. The patient felt weakness in doctor's office and had multiple episodes of p assing out while watching TV, and mother at bedside and complained that his walking is not very good and this patient has difficulty ambulating, may be deconditioned. PAST MEDICAL HISTORY: As above. SOCIAL HISTORY: Has been drinking for 20 years, 1 pack of beer daily. ALLERGIES: No known drug allergies. REVIEW OF SYSTEMS: A 10-point review of systems was negative. PHYSICAL EXAMINATION: HEENT: Normocephalic, atraumatic. NECK: Supple. NEUROLOGIC: Alert, awake, orientated. No aphasia. Cranial nerves II-XII were tested. Pupils react bassem. EOM intact. Visual medel full. No facial asymmetry. Tongue midline and mild right facial we akness from previous Proctor's palsy possible. Mild facial asymmetry on the right face. Spontaneous mov ement of all the extremities noted. Deep tendon reflexes 1+. Both plantars are downgoing. Sensory appears intact. Cerebellar, gait, able to limp and walk. No dysmetria on [id number] or heel-to- edwards. IMPRESSION: The patient had a syncopal episode, less likely seizure, and CAT scan of the head was ne gative. LABORATORY DATA: WBC 4.1, hemoglobin 13.6, hematocrit of 39.9, platelet 89. Sodium 137, potassium 4 .8, chloride 99, CO2 32, glucose 98, BUN 19, creatinine 1.3. PLAN: Workup in progress. Have physical therapy for gait training. Continue present management. W ill follow up. Jorge Luis Morgan MD cc: [id number] TT: 10/01/2016 19:32:09 Confirmation # [id number] Dictation # [id number] segun
--- NOTE | 2016-10-01 22:20 | CARD ---
APPROVED REPORT EXAM: Two-dimensional and M-mode echocardiogram with Doppler and color Doppler. INDICATION Syncope 2D DIMENSIONS Left Atrium (2D)3.8 (1.6-4.0cm)IVSd1.1 (0.7-1.1cm) LVDd5.0 (3.9-5.9cm)PWd1.2 (0.7-1.1cm) LVDs3.0 (2.5-4.0cm)FS (%) 38.8 % LVEF (%)69.1 (>50%) M-Mode DIMENSIONS Aortic Root2.50 (2.2-3.7cm)Aortic Cusp Exc.2.00 (1.5-2.0cm) Aortic Valve AoV Peak Zpluzhwc944.0cm/Melinda Peak GR.10mmHg Mitral Valve MV E Baovqblk640.0cm/sMV A Jtpyipwl97.4cm/sE/A ratio1.4 TDI E/Lateral E'0.0E/Medial E'0.0 Tricuspid Valve TR Peak Pnjfbmjh924us/sRAP [id number] Peak Gr.10mmHg [id number] LEFT VENTRICLE The left ventricle is normal size. There is normal left ventricular wall thickness. The left ventricular function is normal. The left ventricular ejection fraction is within the normal range. There is normal LV segmental wall motion. The left ventricular diastolic function is normal. RIGHT VENTRICLE The right ventricle is normal size. There is normal right ventricular wall thickness. The right ventricular systolic function is normal. ATRIA The left atrium size is normal. The right atrium size is normal. AORTIC VALVE The aortic valve is mildly thickened. No aortic regurgitation is present. There is no aortic valvular stenosis. MITRAL VALVE The mitral valve is normal in structure. There is no mitral valve regurgitation noted. There is no mitral valve stenosis. TRICUSPID VALVE The tricuspid valve is normal in structure. There is trace tricuspid regurgitation. GREAT VESSELS The aortic root is normal in size. The IVC is normal in size and collapses >50% with inspiration. PERICARDIAL EFFUSION There is no pericardial effusion. <Conclusion> The left ventricle is normal size. There is normal left ventricular wall thickness. The left ventricular function is normal. The left ventricular ejection fraction is within the normal range. There is normal LV segmental wall motion. The left ventricular diastolic function is normal.
--- NOTE | 2016-10-02 00:02 | CARD ---
APPROVED REPORT EKG Measurement Heart [id number] <Conclusion> Normal sinus rhythm Normal ECG
[2016-10-02] MEDS: Pantoprazole 40 mg EC Tab PO SCH (05:44)
[2016-10-02 07:32] LABS: ADD MANUAL DIFF? NO
[2016-10-02 07:37] LABS: BASO # 0.02 K/mm3 (0.0-2.0); BASO % 0.4 % (0.0-3.0); EOS # 0.1 (0.0-0.7); EOS % 1.8 % (1.5-5.0); GRAN # 3.47 (1.4-6.5); GRAN % 61.7 % (50.0-68.0); HEMATOCRIT 36.3 % (42.0-52.0); LYMPH # 1.6 (1.2-3.4); LYMPH % 28.8 % (22.0-35.0); MEAN CELL VOLUME 85.2 fL (80.0-105.0); MEAN CORPUSCULAR HEMOGLOBIN 28.9 pg (25.0-35.0); MEAN CORPUSCULAR HGB CONC 33.9 g/dl (31.0-37.0); MEAN PLATELET VOLUME 12.3 fl (7.0-11.0); MONO # 0.4 (0.1-0.6); MONO % 7.3 % (1.0-6.0); PLATELET COUNT 107 10^3/uL (120.0-450.0); RED CELL DISTRIBUTION WIDTH 13.1 % (11.5-14.5); WHITE BLOOD COUNT 5.6 10^3/ul (4.5-11.0)
[2016-10-02 07:51] LABS: ALB/GLOB RATIO 1.4 (1.1-1.8); ALKALINE PHOSPHATASE 38 U/L (38-133); ALT/SGPT 39 U/L (7-56); AST/SGOT 29 U/L (15-59); BILIRUBIN,TOTAL 0.5 mg/dL (0.2-1.3); BLOOD UREA NITROGEN 12 mg/dL (7-21); CALCIUM 9.1 mg/dL (8.4-10.5); CARBON DIOXIDE 27 mmol/L (21-33); CHLORIDE 101 mmol/L (95-110); GFR AFRICAN-AMERICAN > 60; GLUCOSE,RANDOM 100 mg/dL (70-110); POTASSIUM 3.9 mmol/L (3.6-5.0); SODIUM 135 mmol/L (132-148); TOTAL PROTEIN 6.8 g/dL (5.8-8.3)
[2016-10-02 08:29] VITALS: BP 128/75; PULSE 65; RESP 20; TEMP 98.2; O2SAT 99
[2016-10-02] MEDS ORDERED: Multivitamin With Minerals Tab PO ONE (10:57)
[2016-10-02] MEDS: Multivitamin With Minerals Tab PO SCH (10:58)
[2016-10-02] MEDS ORDERED: Alum-Mag Hydrox-Simethicone Susp (30 mL) PO STA (12:50)
--- NOTE | 2016-10-02 13:09 | CP.PCM.DIS ---
Provider - Provider Date of Admission: 09/30/16 16:11 Attending physician: Addy Orta MD Primary care physician: Lety Danielson MD Consults: Podiatry - Dr. Delvalle Neurology _Dr. Clarke Time Spent in preparation of Discharge (in minutes): 45 Hospital Course - Lab Results Lab Results: Most Recent Lab Values WBC 5.6 10^3/ul (4.5-11.0) D 10/02/16 07:00 RBC 4.26 10^6/uL (3.5-6.1) 10/02/16 07:00 Hgb 12.3 gm/dL (14.0-18.0) L 10/02/16 07:00 Hct 36.3 % (42.0-52.0) L 10/02/16 07:00 MCV 85.2 fL (80.0-105.0) 10/02/16 07:00 MCH 28.9 pg (25.0-35.0) 10/02/16 07:00 MCHC 33.9 g/dl (31.0-37.0) 10/02/16 07:00 RDW 13.1 % (11.5-14.5) 10/02/16 07:00 Plt Count 107 10^3/uL (120.0-450.0) L 10/02/16 07:00 MPV 12.3 fl (7.0-11.0) H 10/02/16 07:00 Gran % 61.7 % (50.0-68.0) 10/02/16 07:00 Lymph % (Auto) 28.8 % (22.0-35.0) 10/02/16 07:00 [place] % (Auto) 7.3 % (1.0-6.0) H 10/02/16 07:00 Eos % (Auto) 1.8 % (1.5-5.0) 10/02/16 07:00 Baso % (Auto) 0.4 % (0.0-3.0) 10/02/16 07:00 Gran # 3.47 (1.4-6.5) 10/02/16 07:00 Lymph # 1.6 (1.2-3.4) 10/02/16 07:00 [place] # 0.4 (0.1-0.6) 10/02/16 07:00 Eos # 0.1 (0.0-0.7) 10/02/16 07:00 Baso # 0.02 K/mm3 (0.0-2.0) 10/02/16 07:00 PT 12.1 Seconds (9.9-11.8) H 09/30/16 15:10 INR 1.12 (0.93-1.08) H 09/30/16 15:10 APTT 29.6 Seconds (23.7-30.8) 09/30/16 15:10 Sodium 135 mmol/L (132-148) 10/02/16 07:00 Potassium 3.9 mmol/L (3.6-5.0) 10/02/16 07:00 Chloride 101 mmol/L (95-110) 10/02/16 07:00 Carbon Dioxide 27 mmol/L (21-33) 10/02/16 07:00 Anion Gap 11 (10-20) 10/02/16 07:00 BUN 12 mg/dL (7-21) 10/02/16 07:00 Creatinine 1.0 mg/dL (0.5-1.4) 10/02/16 07:00 Est GFR ( Amer) > 60 10/02/16 07:00 Est GFR (Non-Af Amer) > 60 10/02/16 07:00 Random Glucose 100 mg/dL (70-110) 10/02/16 07:00 Hemoglobin A1c 5.5 % (4.2-6.5) 09/30/16 15:10 Uric Acid 6.7 mg/dL (3.5-8.5) 09/30/16 17:37 Calcium 9.1 mg/dL (8.4-10.5) 10/02/16 07:00 Phosphorus 4.3 mg/dL (2.5-4.5) 09/30/16 17:37 Magnesium 2.0 mg/dL (1.7-2.2) 09/30/16 17:37 Total Bilirubin 0.5 mg/dL (0.2-1.3) 10/02/16 07:00 AST 29 U/L (15-59) 10/02/16 07:00 ALT 39 U/L (7-56) 10/02/16 07:00 Alkaline Phosphatase 38 U/L (38-133) 10/02/16 07:00 Lactate Dehydrogenase 475 U/L (333-699) 09/30/16 15:10 Total Creatine Kinase 293 U/L (35-230) H 09/30/16 15:10 CK-MB (CK-2) 4.2 ng/mL (0.0-3.6) H 09/30/16 15:10 CK-MB (CK-2) % Cancelled 09/30/16 15:10 Troponin I < 0.01 ng/mL 09/30/16 15:10 NT-Pro-B Natriuret Pep 15.3 pg/mL (0-450) 09/30/16 15:10 Total Protein 6.8 g/dL (5.8-8.3) 10/02/16 07:00 Albumin 3.9 g/dL (3.0-4.8) 10/02/16 07:00 Globulin 2.8 gm/dL 10/02/16 07:00 Albumin/Globulin Ratio 1.4 (1.1-1.8) 10/02/16 07:00 Triglycerides 55 mg/dL (35-160) 09/30/16 17:37 Cholesterol 206 mg/dL (130-200) H 09/30/16 17:37 LDL Cholesterol Direct 102 mg/dL (0-129) 09/30/16 17:37 HDL Cholesterol 82 mg/dL (29-60) H 09/30/16 17:37 Vitamin B12 370 pg/mL (239-931) 10/01/16 05:35 TSH 3rd Generation 1.51 mIU/mL (0.46-4.68) 09/30/16 15:10 Urine Color Yellow (YELLOW) 09/30/16 15:40 Urine Appearance Clear (CLEAR) 09/30/16 15:40 Urine pH 6.0 (4.7-8.0) 09/30/16 15:40 Ur Specific [place] 1.025 (1.005-1.035) 09/30/16 15:40 Urine Protein Trace mg/dL (<30 mg/dL) H 09/30/16 15:40 Urine Glucose (UA) Negative mg/dL (NEGATIVE) 09/30/16 15:40 Urine Ketones Negative mg/dL (NEGATIVE) 09/30/16 15:40 Urine Blood Negative (NEGATIVE) 09/30/16 15:40 Urine Nitrate Negative (NEGATIVE) 09/30/16 15:40 Urine Bilirubin Negative (NEGATIVE) 09/30/16 15:40 Urine Urobilinogen 0.2 E.U./dL (<1 E.U./dL) 09/30/16 15:40 Ur Leukocyte Esterase Negative Lili/uL (NEGATIVE) 09/30/16 15:40 Urine RBC 0 - 2 /hpf (0-2) 09/30/16 15:40 Urine WBC 0 - 2 /hpf (0-6) 09/30/16 15:40 Ur Epithelial Cells 0 - 2 /hpf (0-5) 09/30/16 15:40 Urine Bacteria Trace (NEG) 09/30/16 15:40 Urine Opiates Screen Positive (NEGATIVE) H 10/01/16 10:00 Urine Methadone Screen Negative (NEGATIVE) 10/01/16 10:00 Ur Barbiturates Screen Negative (NEGATIVE) 10/01/16 10:00 Ur Phencyclidine Scrn Negative (NEGATIVE) 10/01/16 10:00 Ur Amphetamines Screen Negative (NEGATIVE) 10/01/16 10:00 U Benzodiazepines Scrn Negative (NEGATIVE) 10/01/16 10:00 U Oth Cocaine Metabols Negative (NEGATIVE) 10/01/16 10:00 U Cannabinoids Screen Negative (NEGATIVE) 10/01/16 10:00 Alcohol, Quantitative < 10 mg/dL (0-10) 09/30/16 15:10 Hepatitis A IgM Ab Negative (NEGATIVE) 09/30/16 18:36 Hep Bs Antigen Negative (NEGATIVE) 09/30/16 18:36 Hep B Core IgM Ab Negative (NEGATIVE) 09/30/16 18:36 Hepatitis C Antibody Negative (NEGATIVE) 09/30/16 18:36 HIV 1&2 Ag/Ab, 4th Gen Nonreactive (Nonreactive) 09/30/16 18:36 Discharge Exam - Head Exam Head Exam: ATRAUMATIC, NORMAL INSPECTION, NORMOCEPHALIC Discharge Plan - Discharge Medications Prescriptions: Aspirin [Aspirin Chewable] 81 mg PO DAILY #30 Atorvastatin [Lipitor] 10 mg PO DIN #30 tab Ibuprofen [Motrin Tab] 400 mg PO Q6H PRN #20 tab PRN Reason: Pain, Severe (8-10) Methylprednisolone [Medrol] See Taper PO DAILY #10 tab.ds.pk Multimineral/Multivitamin [Therapeutic-M Tab] 1 tab PO 0800 #30 tab Pantoprazole [Protonix EC Tab] 40 mg PO 0600 #10 ect Thiamine [Vitamin B1 Tab] 100 mg PO DAILY #30 tab Thiamine [Vitamin B1 Tab] 100 mg PO DAILY #30 tab - Follow Up Plan Condition: FAIR Disposition: HOME/ ROUTINE Instructions: Syncope (ED), Syncope (DC), Syncope (GEN) Additional Instructions: 1. Pt is to FU with [facility] clinic or PMD, Dr. Hathaway of choice within 1 week 2. Pt is to FU with Podiatry Dr. Delvalle within 1 week 3. Pt is to use surgical shoe to ambulate 4. Pt is to FU wit PT as per PMD 5. Pt welcomed to return to [facility] ED if symptoms change or worsen Referrals: Lety Danielson MD [Primary Care Provider] -
--- NOTE | 2016-10-02 15:36 | PN ---
DATE: 10/02/2016 A 46-year-old male seen at bedside for continued evaluation and management of left foot pain. The pa emmanuelle has x-rays which came back osteoarthritis, no evidence of fracture, dislocation or bone tumor. The patient's medical history is significant for hypertension and cerebrovascular accident. Denies any past surgical history. VITAL SIGNS: Reveal temperature 98.2, pulse rate of 65, blood pressure of 128/75, respiratory rate o f 20. LABORATORY DATA: Reveal white count of 5.6, hemoglobin of 12.3, hematocrit of 36.3, platelet count o f 107. X-ray report reveals no displaced fracture or dislocation of the left foot; however, there is severe degenerative osteoarthritis in the first metatarsophalangeal joint which is where most of his pain is situated. There is reduced joint space and numerous osteophytes. OBJECTIVE: Weakly palpable pedal pulses noted bilaterally, +1 nonpitting lower extremity edema noted bilaterally. Left foot presents with hallux abductovalgus deformity and pain upon palpation and jose n upon range of motion exercises. The range of motion is decreased, both with dorsiflexion and plant arflexion and with pain. 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 PLAN: The patient was informed on proper shoe gear with a wide and high toe box and given surgical a nd conservative treatment options. The patient opted for conservative treatment at this time. Tong Che DPM cc: [id number] TT: 10/02/2016 15:36:01 Confirmation # [id number] Dictation # [id number] daryl
--- NOTE | 2016-10-02 21:58 | EEG ---
DATE: 10/02/2016 CONDITION OF THE RECORDING: Awake, past medical history of hypertension, CVA. MEDICATIONS: Lipitor and aspirin. DESCRIPTION: Background activity of this tracing was composed of 8-9 cycles per second alpha-like ac tivity, small amount of beta activity 16-20 cycles per second was noted in the tracing. Theta activi ty of 5-7 cycles per second was noted in the tracing. Drowsiness was composed of mixed beta and thet a activity and study is full of muscle artifact. IMPRESSION: Normal awake, drowsy electroencephalography with a lot of muscle artifact. Jorge Luis Morgan MD cc: [id number] TT: 10/02/2016 21:57:58 Confirmation # [id number] Dictation # [id number] mn
== END 2016-10-02 15:12 | disposition home or self-care (01) | DRG 244 ==
LOC: ED 13:37 → ERH 16:11 → 2RNO 20:26 → 3RNO 10-01 18:20
PROVIDERS: ADMIT Internal Medicine; ATTEND Internal Medicine
DX: M19.072 Primary osteoarthritis, left ankle and foot (principal); F11.90 Opioid use, unspecified, uncomplicated; D61.818 Other pancytopenia; I10 Essential (primary) hypertension; M20.12 Hallux valgus (acquired), left foot; R55 Syncope and collapse; M79.672 Pain in left foot; F10.10 Alcohol abuse, uncomplicated; G51.0 Bell's palsy; Y90.0 Blood alcohol level of less than 20 mg/100 ml; Z86.73 Personal history of transient ischemic attack (TIA), and cerebral infarction without residual deficits; Z87.891 Personal history of nicotine dependence

== ENCOUNTER 2017-01-24 17:19 | Emergency (ER) | payer MEDICAID ==
[2017-01-24 17:19] VITALS: BMI 26.8
[2017-01-24 17:33] VITALS: RESP 18; TEMP 98.2; O2SAT 98
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
[2017-01-24 18:32] VITALS: BP 126/64; PULSE 69
--- NOTE | 2017-01-25 08:33 | RAD ---
PROCEDURE: Right Hand Radiographs. HISTORY: pain COMPARISON: None. FINDINGS: BONES: Normal. No fracture. JOINTS: Normal. No osteoarthritic changes. SOFT TISSUES: Normal. OTHER FINDINGS: None. IMPRESSION: Normal right hand radiographs.
== END 2017-01-24 18:38 | disposition home or self-care (01) ==
LOC: ED 17:19
DX: S63.601A Unspecified sprain of right thumb, initial encounter (principal); V19.3XXA Pedal cyclist (driver) (passenger) injured in unspecified nontraffic accident, initial encounter; Y93.55 Activity, bike riding; F17.210 Nicotine dependence, cigarettes, uncomplicated

== ENCOUNTER 2017-04-30 18:36 | Emergency (ER) | payer OTHER, MEDICAID ==
[2017-04-30 19:22] VITALS: BP 119/74; PULSE 71; RESP 18; TEMP 98.5; O2SAT 98; BMI 24.3
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
--- NOTE | 2017-05-01 09:06 | RAD ---
PROCEDURE: Left Hip X-ray Radiographs. HISTORY: pain COMPARISON: None. FINDINGS: BONES: Frontal view of the pelvis and frogleg view of the left hip were performed for left hip pain. Very mild degenerative changes are seen. No fracture is seen. No dislocation is noted. Trochanters are intact. There is a small amount of calcification overlying the left greater trochanter probably related to prior chronic trochanteric bursitis or trauma. No lytic process is seen. Similar changes are seen in the right hip. Evaluation of the bony pelvis reveals no evidence of fracture. No sacroiliac joint widening is seen. Very mild degenerative changes are seen in the lower lumbar spine. JOINTS: See above SOFT TISSUES: Normal. OTHER FINDINGS: None. IMPRESSION: No fracture. Mild degenerative changes.
--- NOTE | 2017-05-01 09:11 | RAD ---
PROCEDURE: Radiographs of the left tibia and fibula. HISTORY: pain COMPARISON: None available. TECHNIQUE: Frontal and lateral views obtained. FINDINGS: BONES: No fracture or destructive lesion. JOINT SPACES: Unremarkable. OTHER FINDINGS: None. IMPRESSION: Unremarkable radiographs of the left tibia and fibula.
== END 2017-04-30 21:00 | disposition home or self-care (01) ==
LOC: ED 18:36
DX: M79.662 Pain in left lower leg (principal); M25.552 Pain in left hip; Y93.55 Activity, bike riding; F17.210 Nicotine dependence, cigarettes, uncomplicated

== ENCOUNTER 2017-08-17 21:30 | Emergency (ER) | payer MEDICAID ==
[2017-08-17 22:32] VITALS: TEMP 98.3; O2SAT 98; BMI 24.4
--- NOTE | 2017-08-17 22:35 | ED PDOC ---
Arrival/HPI - General Chief Complaint: Trauma Time Seen by Provider: 08/17/17 22:32 Historian: Patient - History of Present Illness Narrative History of Present Illness (Text): 08/17/17 22:35 Jigar Kapoor is a 47 year old male, whose past medical history includes hypertension and CVA, who presents to the emergency department complaining of right hand/wrist pain. Patient states he fell on to his outstretch hands in an attempt to stop his fall and injured his right hand/wrist. Patient reports some associated swelling. Patient denies any weakness/numbness/tingling in the extremity, decreased range of motion, or any other complaints. Symptom Onset: Gradual Symptom Course: Unchanged Activities at Onset: Light Context: Home Past Medical History - Provider Review Nursing Documentation Reviewed: Yes - Infectious Disease Hx of Infectious Diseases: None - Tetanus Immunization Tetanus Immunization: Unknown - Cardiac Hx Cardiac Disorders: Yes Other/Comment: cva--2006,2013 - Pulmonary Hx Respiratory Disorders: No - Neurological Hx Neurological Disorder: Yes HX Cerebrovascular Accident: Yes (2006,2013) Hx Dizziness: Yes - HEENT Hx HEENT Disorder: No - Renal Hx Renal Disorder: No - Endocrine/Metabolic Hx Endocrine Disorders: No - Hematological/Oncological Hx Blood Disorders: No - Integumentary Hx Dermatological Disorder: No - Musculoskeletal/Rheumatological Hx Musculoskeletal Disorders: Yes Hx Unsteady Gait: Yes - Gastrointestinal Hx Gastrointestinal Disorders: No - Genitourinary/Gynecological Hx Genitourinary Disorders: No - Psychiatric Hx Psychophysiologic Disorder: Yes Hx Substance Use: No (as per patient, he stopped years ago) - Surgical History Hx Orthopedic Surgery: Yes (right hand knuckle removed) Other/Comment: stitches on chin - Anesthesia Hx Anesthesia: Yes Hx Anesthesia Reactions: No Hx Malignant Hyperthermia: No - Suicidal Assessment Feels Threatened In Home Enviroment: No Family/Social History - Physician Review Nursing Documentation Reviewed: Yes Family/Social History: Unknown Family HX Smoking Status: Heavy Smoker > 10 Cigarettes Daily Hx Alcohol Use: Yes Frequency of alcohol use: Socially Hx Substance Use: No (as per patient, he stopped years ago) Substance used: marijuana, cocaine, heroine Hx Substance Use Treatment: No Allergies/Home Meds Allergies/Adverse Reactions: Allergies No Known Allergies Allergy (Verified 08/17/17 22:13) Home Medications: Home Meds Medication Instructions Recorded Confirmed Methadone [Methadone] 120 mg PO DAILY 04/30/17 08/17/17 Review of Systems - Physician Review All systems were reviewed & negative as marked: Yes - Review of Systems Constitutional: Normal. absent: Fevers Eyes: Normal ENT: Normal Respiratory: Normal. absent: SOB, Cough Cardiovascular: Normal. absent: Chest Pain Gastrointestinal: Normal. absent: Abdominal Pain, Diarrhea, Nausea, Vomiting Genitourinary Male: Normal. absent: Dysuria, Frequency, Hematuria, Urinary Output Changes Musculoskeletal: Arthralgias (+right hand/wrist pain). absent: Back Pain, Neck Pain Skin: Normal. absent: Rash Neurological: Normal. absent: Headache, Dizziness Endocrine: Normal Hemo/Lymphatic: Normal Psychiatric: Normal Physical Exam Vital Signs Reviewed: Yes Vital Signs Temp Pulse Resp BP Pulse Ox 08/17/17 22:20 98.3 F 69 19 106/70 98 Temperature: Afebrile Blood Pressure: Normal Pulse: Regular Respiratory Rate: Normal Appearance: Positive for: Well-Appearing, Non-Toxic, Comfortable Pain Distress: None Mental Status: Positive for: Alert and Oriented X 3 - Systems Exam Head: Present: Atraumatic, Normocephalic Pupils: Present: PERRL Extroacular Muscles: Present: EOMI Conjunctiva: Present: Normal Mouth: Present: Moist Mucous Membranes Neck: Present: Normal Range of Motion Upper Extremity: Present: Normal Inspection, Normal ROM, NORMAL PULSES, Neurovascularly Intact, Capillary Refill < 2s. No: Cyanosis, Edema, Tenderness , Swelling, Erythema, Temperature Abnormalties, Deformity, Norm 2-Pt Discrimination Lower Extremity: Present: Normal Inspection. No: Edema Neurological: Present: GCS=15, CN II-XII Intact, Speech Normal Skin: Present: Warm, Dry, Normal Color. 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 Differential Diagnosis included but are not limited to: fracture vs. sprain Plan: -- XR Right Wrist -- XR Right Hand -- Tylenol -- Reassess and disposition Progress Notes: Reviewed radiology, XR Right Wrist shows no acute processes. XR Right Hand shows no acute processes. 08/17/17 23:37 On reevaluation the patient feels better and is in no acute distress. I have discussed the results and plan with the patient, who expresses understanding. Patient given the opportunity to ask question, all questions were answered and there is agreement with the plan to discharge the patient home. Patient is stable for discharge. Patient was instructed to follow up with physician/clinic in 1-2 days or return if symptoms persist/worsen or new concerning symptoms arise. 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 Yes Location Left, Right or Bilateral Right Pain Location Body Site Hand Intensity 5 Pain Behavior Withdrawal from Touch - Scribe Statement The provider has reviewed the documentation as recorded by the Scribe Gaye Pike Provider Scribe Attestation: All medical record entries made by the Scribe were at my direction and personally dictated by me. I have reviewed the chart and agree that the record accurately reflects my personal performance of the history, physical exam, medical decision making, and the department course for this patient. I have also personally directed, reviewed, and agree with the discharge instructions and disposition. Disposition/Present on Arrival - Present on Arrival History of DVT/PE: No History of Uncontrolled Diabetes: No Urinary Catheter: No History of Decub. Ulcer: No History Surgical Site Infection Following: None - Disposition Diagnosis: Contusion of right hand Disposition: HOME/ ROUTINE Disposition Time: 23:37 Patient Problems: Current Active Problems Problem Status Onset Contusion of right hand Acute Discharge Instructions (ExitCare): Contusion (DC) Additional Instructions: use splint 4 to 5 days Referrals: Lety Danielson MD [Primary Care Provider] - Follow up with primary Forms: [employer] (Uzbek)
[2017-08-18 02:11] VITALS: BP 110/69; PULSE 70; RESP 18
--- NOTE | 2017-08-18 08:11 | RAD ---
PROCEDURE: Right Wrist Radiographs. HISTORY: fall COMPARISON: August 17, 2017. Right reported separately FINDINGS: BONES: Normal. No fracture. JOINTS: Normal. No dislocation. SOFT TISSUES: Normal. OTHER FINDINGS: None. IMPRESSION: Normal right wrist radiographs.
--- NOTE | 2017-08-18 08:11 | RAD ---
PROCEDURE: Right Hand Radiographs. HISTORY: fall COMPARISON: None. FINDINGS: BONES: Normal. No fracture. JOINTS: Normal. No osteoarthritic changes. SOFT TISSUES: Normal. OTHER FINDINGS: None. IMPRESSION: No acute findings related to/accounting for the clinical presentation.
== END 2017-08-17 23:55 | disposition home or self-care (01) ==
LOC: ED 21:30
DX: S60.221A Contusion of right hand, initial encounter (principal); W01.0XXA Fall on same level from slipping, tripping and stumbling without subsequent striking against object, initial encounter; Y92.9 Unspecified place or not applicable

== ENCOUNTER 2018-02-19 06:28 | Emergency (ER) | payer MEDICAID ==
[2018-02-19 06:29] VITALS: BMI 26.8
--- NOTE | 2018-02-19 07:28 | ED PDOC ---
Arrival/HPI - General Chief Complaint: Abdominal Pain Time Seen by Provider: 02/19/18 07:13 Historian: Patient - History of Present Illness Narrative History of Present Illness (Text): 02/19/18 07:24 47 year old male smoker, presents complaining of hypertension and CVA in 2006 and 2011 with lower extremity weakness, presents to the emergency department complaining of lower back pain that radiates to the abdomen which began this morning. Patient reports the pain is worse with movement, but denies any radiation to the legs. Patient reports similar pain in the past. He admits to drinking last night and reports chronic headache. Patient denies any trauma, fever, chills, chest pain, shortness of breath, nausea, vomiting, diarrhea, urinary symptoms, neck pain, dizziness, or any other complaints. PMD: Dr. Danielson Time/Duration: Other (this morning) Symptom Onset: Sudden Symptom Course: Unchanged Activities at Onset: Light Context: Home Past Medical History - Provider Review Nursing Documentation Reviewed: Yes - Infectious Disease Hx of Infectious Diseases: None - Tetanus Immunization Tetanus Immunization: Unknown - Cardiac Hx Cardiac Disorders: Yes Other/Comment: cva--2006,2013 - Pulmonary Hx Respiratory Disorders: No - Neurological Hx Neurological Disorder: Yes HX Cerebrovascular Accident: Yes (2006,2013) Hx Dizziness: Yes - HEENT Hx HEENT Disorder: No - Renal Hx Renal Disorder: No - Endocrine/Metabolic Hx Endocrine Disorders: No - Hematological/Oncological Hx Blood Disorders: No - Integumentary Hx Dermatological Disorder: No - Musculoskeletal/Rheumatological Hx Musculoskeletal Disorders: No - Gastrointestinal Hx Gastrointestinal Disorders: No - Genitourinary/Gynecological Hx Genitourinary Disorders: No - Psychiatric Hx Psychophysiologic Disorder: Yes Hx Substance Use: No (as per patient, he stopped years ago) - Surgical History Hx Orthopedic Surgery: Yes (right hand knuckle removed) Other/Comment: stitches on chin - Anesthesia Hx Anesthesia: Yes Hx Anesthesia Reactions: No Hx Malignant Hyperthermia: No - Suicidal Assessment Feels Threatened In Home Enviroment: No Family/Social History - Physician Review Nursing Documentation Reviewed: Yes Family/Social History: No Known Family HX Smoking Status: Heavy Smoker > 10 Cigarettes Daily Hx Alcohol Use: No Hx Substance Use: No (as per patient, he stopped years ago) Substance used: marijuana, cocaine, heroine Hx Substance Use Treatment: No Allergies/Home Meds Allergies/Adverse Reactions: Allergies shellfish derived Adverse Reaction (Verified 02/19/18 06:52) ANAPHYLAXIS Review of Systems - Physician Review All systems were reviewed & negative as marked: Yes - Review of Systems Constitutional: absent: Fevers, Other (Chills) Respiratory: absent: SOB Cardiovascular: absent: Chest Pain Gastrointestinal: absent: Diarrhea, Nausea, Vomiting Genitourinary Male: absent: Dysuria, Frequency, Hematuria Musculoskeletal: Back Pain (radiates to abdomen). absent: Neck Pain Neurological: Headache. absent: Dizziness Physical Exam - Physical Exam Narrative Physical Exam (Text): Gen: VS reviewed, alert, well developed, well nourished, nontoxic, mild distress. ENT: normal pharynx. Eye: EOMI, PERRL. Neck: no JVD, supple, no adenopathy. CV: regular rate, regular rhythm, no rubs, no murmur, no gallops, S1, S2, pulses equal and strong. Pulm: no distress, clear to auscultation, no wheeze, no rhonchi, breath sounds equal, no rales. Abd: soft, nontender, no guarding, no rebound, no rigidity, normal bowel sounds. No pulsatile abdominal mass. Back: Questionable tenderness to lumbar area around L4 and L5. Patient has an inconsistent reaction to superficial palpation. Ext: no edema. Skin: good color, no rash, no cyanosis. Psych: responds appropriately to questions, normal affect. Neuro: oriented x 3, CN2-12 intact grossly, motor intact, sensation intact. Vital Signs Reviewed: Yes Vital Signs Temp Pulse Resp BP Pulse Ox 02/19/18 06:57 98.0 F 60 17 132/86 99 Temperature: Afebrile Blood Pressure: Normal Pulse: Regular Respiratory Rate: Normal Medical Decision Making ED Course and Treatment: 02/19/18 07:24 Impression: 47 year old male presents complaining of lower back pain that radiates to the abdomen that began this morning. Plan: -- Tylenol -- LS Spine with Obl x-ray -- Reassess and disposition Prior Visits: Notes and results from previous visits were reviewed. Progress Notes: 02/19/18 09:16 On re-evaluation, patient feels better and is in no acute distress. I have discussed the results and plan with the patient, who expresses understanding. Patient in agreement with plan to be discharged home. Patient is stable for discharge. Patient was instructed to follow up with physician or return if symptoms worsen or new concerning symptoms arise. 02/19/18 13:34 patient was seen for low back pain, no acute neuro deficits, no fever, no trauma, no hx cancer to suggest acute serious etiology such tumor or abscess. patient did not have abdominal pain at time of ED eval. workup focused to patient's current complaints. patient discharged in stable condiction to follow up with pcp. - RAD Interpretation Narrative RAD Interpretations (Text): EXAM: LS Spine with Obl x-ray Dictator : Marysol Mao MD Report Date : 02/19/2018 09:13:36 IMPRESSION: No acute fracture, spondylolysis or spondylolisthesis. Mild multilevel degenerative disc disease, worse at L5-S1. Radiology Orders: 02/19/18 07:22 LS SPINE WITH OBL > 18 YRS OLD [RAD] Stat Inventory And Pricing Associate: Radiologist - Medication Orders Current Medication Orders: Acetaminophen (Tylenol 325mg Tab) 975 mg PO STAT STA Stop: 02/19/18 07:23 - Scribe Statement The provider has reviewed the documentation as recorded by the Orin Castro Provider Scribe Attestation: All medical record entries made by the Orin were at my direction and personally dictated by me. I have reviewed the chart and agree that the record accurately reflects my personal performance of the history, physical exam, medical decision making, and the department course for this patient. I have also personally directed, reviewed, and agree with the discharge instructions and disposition. Disposition/Present on Arrival - Present on Arrival Any Indicators Present on Arrival: No History of DVT/PE: No History of Uncontrolled Diabetes: No Urinary Catheter: No History of Decub. Ulcer: No History Surgical Site Infection Following: None - Disposition Have Diagnosis and Disposition been Completed?: Yes Diagnosis: Low back pain, Arthritis of lumbar spine Disposition: HOME/ ROUTINE Disposition Time: 09:16 Patient Plan: Discharge Condition: STABLE Discharge Instructions (ExitCare): Low Back Pain in Adults, Degenerative Disc Disease Additional Instructions: You must follow up with a primary care doctor for further evaluation of the low back pain which may include MRI. Return for any mew or worsening symptoms especially fever greater than 100.4, worsening pain, new weakness or numbness in the legs. TALISHA SILVA, thank you for letting us take care of you today. Your provider was Dr. Johan Courtney and you were treated for low back pain. The emergency medical care you received today was directed at your acute symptoms. If you were prescribed any medication, please fill it and take as directed. It may take sev eral days for your symptoms to resolve. Return to the Emergency Department if your symptoms worsen, do not improve, or if you have any other problems. Please contact your doctor or call one of the physicians/clinics you have been referred to that are listed on the Patient Visit Information form that is included in your discharge packet. Bring any paperwork you were given at discharge with you along with any medications you are taking to your follow up visit. Our treatment cannot replace ongoing medical care by a primary care provider outside of the emergency department. Thank you for allowing the [facility] team to be part of your care today. If you had an X-Ray or CT scan: A Radiologist will review the ED reading if any change in treatment is needed we will contact you. If you had a blood, urine, or wound culture: It will take several days for the results, if any change in treatment is needed we will contact you. If you had an STI test: It will take 48 hours for the results. Please call after 1 week if you have not heard back. Prescriptions: Cyclobenzaprine [Flexeril] 5 mg PO TID #15 tab RX: Ibuprofen [Motrin Tab] 600 mg PO QID #42 tab Lidocaine 5% [Lidoderm] 1 ea TD Q12H #14 patch Referrals: [facility] [Outside] - Follow up with primary Sho Abdi MD [Medical Doctor] - Follow up with primary Forms: [employer] (Turkish), WORK NOTE
[2018-02-19 08:20] VITALS: RESP 18; O2SAT 100
--- NOTE | 2018-02-19 09:17 | RAD ---
Date of service: 02/19/2018 PROCEDURE: Radiographs of the Lumbar Spine. HISTORY: low back pain COMPARISON: No prior. FINDINGS: BONES: There is normal alignment of the lumbar vertebral bodies. There is normal lumbar lordosis. There is no acute fracture, spondylolysis or spondylolisthesis. Bone mineralization is normal. 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 DISC SPACES: Mild multilevel degenerative disc disease due to anterior osteophytes, reduced disc heights and multilevel facet arthropathy, worse at L5-S1. OTHER FINDINGS: No pathologic soft tissue calcifications. Both sacroiliac joints are normal. IMPRESSION: No acute fracture, spondylolysis or spondylolisthesis. Mild multilevel degenerative disc disease, worse at L5-S1.
[2018-02-19 09:32] VITALS: BP 110/68; PULSE 60; TEMP 98
== END 2018-02-19 09:31 | disposition home or self-care (01) ==
LOC: ED 06:28
DX: M54.5 Low back pain (principal); M47.896 Other spondylosis, lumbar region